=== PATIENT | female | born 1980 | race Two or more races ===

== ENCOUNTER → 2024-04-04 | Outpatient (CLI) | payer MEDICAID ==
[~2024-04-04] MED LIST: ASPI-543 PO; FERR-7 PO; HYDR-4902 PO; INSU100I28 SC; MAGN100C5 PO; METO-289 PO
[2024-04-04 08:29] VITALS: BP 141/105; PULSE 20; RESP 20; O2SAT 99
[2024-04-04 08:39] VITALS: BP 145/93; PULSE 71; RESP 18; O2SAT 99
== END | disposition home or self-care (01) ==
LOC: Rad HDHVI 08:21
PROVIDERS: ATTEND Internal Medicine Cardiovascular Disease
DX: Z01.818 Encounter for other preprocedural examination (principal); R06.02 Shortness of breath; I10 Essential (primary) hypertension; R00.2 Palpitations
CPT/HCPCS: 71046; 93005; G0463

== ENCOUNTER 2024-04-07 07:05 | Day surgery (SDC) | payer MEDICAID ==
[2024-04-04 10:57] LABS: Basophils # (auto) 0.1 10 ^3/uL (0-0.2); Eosinophils # (auto) 0.2 10 ^3/uL (0-0.8); Hemoglobin 11.3 g/dL (12.2-16.2); Lymphocytes # (auto) 2.8 10 ^3/uL (0.4-5.4); Monocytes # (auto) 0.4 10 ^3/uL (0-1.3); Nucleated Red Blood Cells % 0.1 %
[2024-04-04 10:59] LABS: Eosinophils % (auto) 2.4 % (0.0-7.0); Hematocrit 37.6 % (36.0-46.0); Lymphocytes % (auto) 41.8 % (10.0-50.0); Mean Corpuscular Volume 63.4 fL (80.0-100.0); Monocytes % (auto) 5.2 % (0.0-12.0); Neutrophils # (auto) 3.4 10 ^3/uL (1.6-8.6); Neutrophils % (auto) 49.6 % (37.0-80.0); Red Blood Cells 5.93 10^6/uL (4.0-5.20); Red Cell Distribution Width 22.4 % (11.8-14.3); White Blood Cell 6.8 10^3/uL (4.4-10.8)
[2024-04-04 11:15] LABS: INR 1.06 (0.9-1.15); Partial Thromboplastin Time 30.2 SEC (24.5-34.5); Prothrombin Time 11.2 sec (9.3-11.8)
[2024-04-04 11:48] LABS: Anion Gap 5 (5-15); Carbon Dioxide 29 mmol/L (20-30); Chloride 105 mmol/L (98-107); Potassium 4.2 mmol/L (3.5-5.1); Sodium 139 mmol/L (136-145)
[2024-04-04 11:49] LABS: Calcium 9.2 mg/dL (8.5-10.1)
[2024-04-04 11:54] LABS: Glucose 118 mg/dL (74-106)
[2024-04-04 12:06] LABS: BUN/Creatinine Ratio 8.6 (10.0-20.0); Blood Urea Nitrogen < 5 mg/dL (9-23)
[~2024-04-07] VITALS: Ht 180.3 cm; Wt 119.3 kg
[2024-04-07] MEDS ORDERED: IOHEXOL 350 MG/ML 100ML IJ ONE (07:42)
[2024-04-07] MEDS ORDERED: LIDOCAINE 2%HCL (LOCAL ANESTH.) INJ 20ML MDV ONE (07:42)
[2024-04-07] MEDS ORDERED: IODIXANOL 320MG/ML 100ML BTL IV ONE (07:43)
[2024-04-07] MEDS ORDERED: HEPARIN IN NS 1000Units/500mL 1,500 ML ONE (07:43)
[2024-04-07] MEDS ORDERED: GELATIN 1 SPONGE SIZE 50 TOP ONE (07:43)
[2024-04-07] MEDS ORDERED: SODIUM CHL 0.9% 0 ML ONE (08:50)
[2024-04-07] MEDS ORDERED: MIDAZOLAM HCL 2MG/2ML 2ml VIAL (1mg/ml) ONE (08:50)
[2024-04-07] MEDS ORDERED: ANGIOMAX 250 MG VIAL IV ONE (08:50)
[2024-04-07] MEDS ORDERED: fentaNYL CITRATE 100 MCG/2 ML VL ONE (08:50)
== END 2024-04-07 11:35 | disposition home or self-care (01) ==
LOC: CATH 07:05
PROVIDERS: ATTEND Internal Medicine Cardiovascular Disease
DX: R94.39 Abnormal result of other cardiovascular function study (principal); I10 Essential (primary) hypertension; I25.10 Atherosclerotic heart disease of native coronary artery without angina pectoris; E78.5 Hyperlipidemia, unspecified; E11.40 Type 2 diabetes mellitus with diabetic neuropathy, unspecified; Z79.82 Long term (current) use of aspirin; Z79.899 Other long term (current) drug therapy; Z98.890 Other specified postprocedural states
CPT/HCPCS: 36415; 80048; 84702; 85025; 85610; 85730; 93460; C1760; C1894; J1644; J2250; J3010; Q9967; 99152

== ENCOUNTER → 2024-11-28 | Outpatient (CLI) | payer MEDICAID | END | disposition home or self-care (01) | LOC: Rad HDHVI 07:59 | PROVIDERS: ATTEND Internal Medicine Cardiovascular Disease | DX: I10 Essential (primary) hypertension (principal) | CPT/HCPCS: 93306 ==

== ENCOUNTER 2025-07-18 08:31 | Outpatient (CLI) | payer MEDICAID ==
[2025-07-18 08:50] VITALS: BP 126/82; PULSE 81; RESP 16; O2SAT 96
[2025-07-18 09:02] VITALS: BP 120/74; PULSE 72; RESP 16; O2SAT 96
[2025-07-18] MEDS ORDERED: HYDR12.59 PO (11:01)
== END 2025-07-18 17:00 | disposition home or self-care (01) ==
LOC: CHF HDHVI 08:31
PROVIDERS: ATTEND Internal Medicine Cardiovascular Disease
DX: Z01.810 Encounter for preprocedural cardiovascular examination (principal)
CPT/HCPCS: 93005; G0463

== ENCOUNTER 2025-07-20 07:39 | Day surgery (SDC) | payer MEDICAID ==
[2025-07-18 11:08] LABS: Chloride 100 mmol/L (98-107); Potassium 4.1 mmol/L (3.5-5.1); Sodium 137 mmol/L (136-145)
[2025-07-18 11:09] LABS: Anion Gap 9 (5-15); Calcium 9.0 mg/dL (8.7-10.4); Carbon Dioxide 28 mmol/L (20-31)
[2025-07-18 11:15] LABS: BUN/Creatinine Ratio 10.4 (10.0-20.0)
[2025-07-18 11:23] LABS: Blood Urea Nitrogen 7 mg/dL (9-23); Glucose 297 mg/dL (74-106)
[2025-07-18 11:24] LABS: Hemoglobin 11.3 g/dL (12.2-16.2)
[2025-07-18 11:27] LABS: Hematocrit 37.3 % (36.0-46.0); Mean Corpuscular Hemoglobin 19.3 pg (28.0-32.0); Mean Corpuscular Volume 63.7 fL (80.0-100.0); Nucleated Red Blood Cells % 0.0 %
[2025-07-18 11:29] LABS: INR 1.03 (0.9-1.15); Partial Thromboplastin Time 31.2 SEC (24.5-34.5); Prothrombin Time 10.9 sec (9.3-11.8)
[2025-07-18 11:52] LABS: Macrocytosis Moderate
[~2025-07-20] VITALS: Ht 180.3 cm; Wt 119.7 kg
[~2025-07-20 07:39] MED LIST changes: -ASPI-543 PO; +HYDR12.59 PO; -INSU100I28 SC; -MAGN100C5 PO
[2025-07-20] MEDS ORDERED: LIDOCAINE 2%HCL (LOCAL ANESTH.) INJ 20ML MDV ONE ×2 (13:16→13:34)
[2025-07-20] MEDS ORDERED: MIDAZOLAM HCL 2MG/2ML 2ml VIAL (1mg/ml) ONE (13:33)
[2025-07-20] MEDS ORDERED: fentaNYL CITRATE 100 MCG/2 ML VL ONE (13:33)
[2025-07-20 13:46] VITALS: BP 129/88; PULSE 85; RESP 20; TEMP 97.9; O2SAT 94
[2025-07-20 14:02] VITALS: BP 125/89; PULSE 85; RESP 13; O2SAT 95
--- NOTE | 2025-07-20 14:03 | DVHHP ---
ADMIT DATE: 07/20/2025 HISTORY OF PRESENT ILLNESS: The patient is 45 years old with recurrent palpitations. Near syncopal episode. She reports a tele-monitor failed to demonstrate any dysrhythmia, but during the time when she was being monitored, she did not have any symptoms as well. FAMILY HISTORY: Negative. SOCIAL HISTORY: Negative. REVIEW OF SYSTEMS: She denies any fever, chills, melena, hematochezia, hematemesis, or hemoptysis. No history of dysuria, polyuria or hematuria. No history of any infectious etiology. No history of rheumatologic disorder at this time. She, however, has been having palpitations, near syncopal episode. She is hypertensive; however, she is on appropriate medication. At point, the tele-monitor shows episodes of maybe atrial tachycardia, but short bursts, nonsustained. FAMILY HISTORY: Negative. PHYSICAL EXAMINATION: VITAL SIGNS: Blood pressure is 132/84, pulse of 54, O2 saturation 96% on room air. HEENT: Pupils are equal and reactive. Funduscopic exam is benign. No papilledema. No exudates. Sclerae anicteric. Extraocular muscles are intact. PULMONARY: Clear to auscultation. CARDIOVASCULAR: Regular rate without S3, without S4. PMI is nondisplaced. ABDOMEN: Soft, nontender, obese. Unable to appreciate organomegaly. Stool guaiac is negative. EXTREMITIES: 2+ pulses. NEUROLOGIC: The patient is intact. ASSESSMENT AND PLAN: ____ includes current symptoms of palpitations, dizziness, near syncopal episode. The patient is now to undergo loop recorder implantation. Risks and benefits were explained to the patient. The patient understands and agrees. Fredy Fink MD SA/JASWINDER/IAMN TID: [id number] RECEIPT: [id number]
--- NOTE | 2025-07-20 14:06 | DVHDS ---
DATE OF DISCHARGE: 07/20/2025 HOSPITAL COURSE: The patient with palpitation, unclear etiology, now underwent successful Biotronik loop recorder insertion. The loop recorder inserted is a BIOMONITOR IV, model number [id number], serial number [id number]. At this time, no complication during the course of the procedure. She is stable at the time of discharge. DISPOSITION: Home. ACTIVITY: As instructed. DIET: Will be 2 g sodium diet. Fredy Fink MD SA/JESSICA TID: [id number] RECEIPT: [id number]
--- NOTE | 2025-07-20 14:09 | DVHOP ---
DATE OF SURGERY: 07/20/2025 PROCEDURE PERFORMED: Implantation of Biotronik loop recorder. At this time, the patient is now to undergo loop recorder insertion. Risks and benefits were explained to the patient. The patient also had conscious sedation given during the time of the surgery. DESCRIPTION OF PROCEDURE: The patient was prepped and draped under sterile condition. 2% Xylocaine used to anesthetize the left rib, 4th and 5th place. With appropriate local anesthetic agent given, a small 1 cm incision was made in the anterior aspect of the left chest near the sternum. Then, using a Grisel, we were able to get a tunnel through, and then following that, we inserted the Biotronik loop recorder delivery device in, appropriately positioned and then released accordingly. Hemostasis was obtained and 3 surgical clips were placed in the incision site without any complication. A pressure dressing has been implanted. The patient also will be put on antibiotics for the duration. CONCLUSION: The patient had successful implantation of Biotronik loop recorder. Appropriate sensing was determined and the location was appropriate. Chest x-ray has been performed as well. I will continue to monitor the patient. Fredy Fink MD SA/LINH/IMAN TID: [id number] RECEIPT: [id number]
[2025-07-20 14:17] VITALS: BP 131/90; PULSE 80; RESP 16; O2SAT 98
[2025-07-20 14:32] VITALS: BP 141/91; PULSE 92; RESP 12; O2SAT 98
== END 2025-07-20 14:55 | disposition home or self-care (01) ==
LOC: CATH 07:39
PROVIDERS: ATTEND Internal Medicine Cardiovascular Disease
DX: R55 Syncope and collapse (principal); I47.10 Supraventricular tachycardia, unspecified; I10 Essential (primary) hypertension; Z79.899 Other long term (current) drug therapy; Z88.8 Allergy status to other drugs, medicaments and biological substances; Z91.011 Allergy to milk products
CPT/HCPCS: 33285; 36415; 80048; 84702; 85025; 85610; 85730; C1764; J2250; J3010; 99152